=== PATIENT | male | born 1960 | race Caucasian/White ===

== ENCOUNTER 2017-02-19 12:53 | Emergency (ER) | payer OTHER ==
[~2017-02-19] VITALS: Ht 170.2 cm; Wt 91.2 kg
[2017-02-19 12:59] VITALS: TEMP 36.7; Ht 170.2 cm; Wt 91.2 kg
--- NOTE | 2017-02-19 14:05 | DIAGNOSTIC IMAGING REPORT ---
RIGHT FOOT 3 VIEWS CLINICAL HISTORY: Fall yesterday with right foot pain. FINDINGS: 3 views of the right foot are obtained. No prior studies are available for comparison at the time of dictation. The skeletal structures are well mineralized. No fracture is seen. The joint spaces of the foot are well-maintained. There is a large dorsal calcaneal enthesophyte. The overlying soft tissues are within normal limits. IMPRESSION: No acute bony abnormality is seen in the right foot. Electronically signed by: Timothy Cantu M.D. 02/19/2017 2:04 PM Dictated Date/Time: 02/19/2017 2:03 PM
--- NOTE | 2017-02-19 14:05 | DIAGNOSTIC IMAGING REPORT ---
RIGHT TIBIA AND FIBULA 2 VIEWS CLINICAL HISTORY: Fall yesterday with right leg pain. FINDINGS: AP and crosstable lateral views of the right tibia and fibula are obtained. No prior studies are available for comparison at the time of dictation. The skeletal structures are well mineralized. There is no radiographic evidence of right tibial or fibular fracture. The knee and ankle joints are grossly maintained. The overlying soft tissues are within normal limits. IMPRESSION: There is no radiographic evidence of right tibial or fibular fracture. Electronically signed by: Timothy Cantu M.D. 02/19/2017 2:03 PM Dictated Date/Time: 02/19/2017 2:02 PM
--- NOTE | 2017-02-19 14:07 | DIAGNOSTIC IMAGING REPORT ---
RIGHT KNEE 3 VIEWS CLINICAL HISTORY: Fall yesterday with right knee pain. FINDINGS: AP, crosstable lateral, and sunrise views of the right knee are obtained. No prior studies are available for comparison at the time of dictation. The skeletal structures are well mineralized. No fracture is seen. There is mild degenerative narrowing at the patellofemoral articulation. There is a joint effusion. Prepatellar soft tissue edema is noted. IMPRESSION: Prepatellar soft tissue swelling and joint effusion. No right knee fracture is seen. Electronically signed by: Timothy Cantu M.D. 02/19/2017 2:06 PM Dictated Date/Time: 02/19/2017 2:04 PM
--- NOTE | 2017-02-19 14:23 | EMERGENCY ROOM VISIT NOTE ---
ED Visit Note First contact with patient: 13:02 CHIEF COMPLAINT: knee pain HISTORY OF PRESENT ILLNESS: This 56-year-old male patient presents to the emergency department ambulatory after sustaining an injury to the right knee and leg and foot. The patient was on a ladder. He states the ladder slipped out from beneath him and he rode the ladder down and landed on his feet. He states he did not fall to the ground. He complains of pain in the right knee, right tib-fib and right foot. He has been using crutches. He denies striking his head or having loss of consciousness. He denies neck or back pain. The patient states he has a history of back pain and is certain that his back feels fine today. He does not feel as though the pain in his leg is coming from his back. The patient denies any other injuries besides their leg. The patient denies swelling or bruising. There is pain diffusely over the knee. They rate the pain as sharp and 6/10. The patient states they are unable to walk on it. No numbness or tingling. No previous injuries to this knee. No ankle, foot or hip pain. REVIEW OF SYSTEMS: A 6 system review of systems was completed with positives and pertinent negatives listed in the HPI. ALLERGIES: No known drug allergies MEDICATIONS: See nursing notes PMH: Patient denies SOCIAL HISTORY: The patient lives locally PHYSICAL EXAM: Vital Signs: Reviewed Nurse's notes, vital signs stable. GENERAL : This is a 56-year-old male, no acute distress, but appears in pain, well- developed, well-nourished. MENTAL STATUS: Alert, oriented to person place and time, and cooperative. MUSCULOSKELETAL: The right knee is mildly swollen. There is no ecchymosis. There is moderate joint effusion present. The patient is tender diffusely over the knee. There is lateral joint line tenderness. The patella does not subluxate. Range of motion is intact but painful5. Strength of the quads and hamstrings is 5/5. Wei's is negative. Della's and Anterior Drawer tests are negative. There is no obvious laxity with varus and valgus stressing. The foot and toes are warm and well-perfused. Dorsalis pedis pulse 2+. Sensation to pain and light touch is intact. Capillary refill less than 2 seconds. HEENT: Head is normocephalic and atraumatic. Pupils equal round and reactive to light. There is no hemotympanum on examination of the ears. NEck: There is no tenderness to palpation of the cervical spine. There is full range of motion of the neck without any pain. SPINE: There is no tenderness to palpation over any of the vertebrae. There is no paraspinous muscle tenderness. The patient has full movement in the spine without pain. EMERGENCY DEPARTMENT COURSE: I examined the patient. X-rays of the right knee , foot and tib-fib were reviewed by myself and read by radiology and reveal knee effusion but no obvious fracture. The patient was placed in a knee immobilizer under my direction and the position was satisfactory. The patient was instructed on the use of crutches and has his own crutches. The patient suffered an axial loading injury. He did not suffer a head injury. He does not have any tenderness to palpation or complaints of pain along the entire spine. He does not have any pain to the calcaneus. The patient does have a right knee effusion. I do suspect ligamentous or meniscal injury. He was encouraged to contact orthopedics for a follow-up appointment. He should return to the ER with worsening symptoms. The patient was discharged home in good condition. [~ rep ct add3]] RIGHT FOOT 3 VIEWS CLINICAL HISTORY: Fall yesterday with right foot pain. FINDINGS: 3 views of the right foot are obtained. No prior studies are available for comparison at the time of dictation. The skeletal structures are well mineralized. No fracture is seen. The joint spaces of the foot are well-maintained. There is a large dorsal calcaneal enthesophyte. The overlying soft tissues are within normal limits. IMPRESSION: No acute bony abnormality is seen in the right foot. RIGHT KNEE 3 VIEWS CLINICAL HISTORY: Fall yesterday with right knee pain. FINDINGS: AP, crosstable lateral, and sunrise views of the right knee are obtained. No prior studies are available for comparison at the time of dictation. The skeletal structures are well mineralized. No fracture is seen. There is mild degenerative narrowing at the patellofemoral articulation. There is a joint effusion. Prepatellar soft tissue edema is noted. IMPRESSION: Prepatellar soft tissue swelling and joint effusion. No right knee fracture is seen. [~ rep ct add3]] RIGHT TIBIA AND FIBULA 2 VIEWS CLINICAL HISTORY: Fall yesterday with right leg pain. FINDINGS: AP and crosstable lateral views of the right tibia and fibula are obtained. No prior studies are available for comparison at the time of dictation. The skeletal structures are well mineralized. There is no radiographic evidence of right tibial or fibular fracture. The knee and ankle joints are grossly maintained. The overlying soft tissues are within normal limits. IMPRESSION: There is no radiographic evidence of right tibial or fibular fracture. Current/Historical Medications Scheduled PRN Hydrocodone/Acetaminophen 5MG/325MG ([place] 5MG/325MG), 1 TABLET PO Q6 PRN for Pain Allergies Coded Allergies: No Known Allergies (Verified , 02/19/17) Vital Signs Date Time Temp Pulse Resp B/P (MAP) Pulse Ox O2 Delivery O2 Flow Rate FiO2 02/19/17 14:39 88 20 124/75 99 02/19/17 12:59 36.7 88 18 126/74 95 Departure Information Impression Primary Impression: Knee effusion, right Additional Impression: Fall Dispostion Home / Self-Care Condition GOOD Prescriptions Hydrocodone/Acetaminophen 5MG/325MG ([place] 5MG/325MG) Tab 1 TABLET PO Q6 Y for Pain, #12 TAB For Initial Treatment Prov: Suma Zamorano PA-C 02/19/17 Referrals No Doctor, Assigned (PCP) Mono Murray MD Forms HOME CARE DOCUMENTATION FORM, IMPORTANT VISIT INFORMATION, Work Instructions Patient Instructions ED Effusion Knee, My [facility] Additional Instructions Motrin 600 mg every 6-8 hours or moderate pain [place] 1 tablet every 6 hours if needed for worse pain. Do not drink or drive while taking [place] and do not take with Tylenol. Wear the immobilizer when up and about and use crutches to assist in the ambulation Contact orthopedics first thing in the morning to schedule a follow-up appointment for further evaluation, management and possible outpatient MRI Problem Qualifiers
[2017-02-19] MEDS ORDERED: HYDR-5688 PO (14:25)
[2017-02-19 14:39] VITALS: BP 124/75; PULSE 88; O2SAT 99
== END 2017-02-19 14:41 | disposition home or self-care (01) ==
LOC: C.EDB 12:54 → C.EDD 14:41
DX: M25.461 Effusion, right knee (principal); W11.XXXA Fall on and from ladder, initial encounter